=== PATIENT | female | born 1985 ===

== ENCOUNTER 2024-07-24 16:26 | Emergency (ER) | payer SELFPAY ==
[2024-07-24 16:27] VITALS: BP 146/89; PULSE 88; RESP 18; TEMP 36.6; O2SAT 100
--- NOTE | 2024-07-24 16:29 | ED.ABDPAIN ---
HPI - Abdominal Pain General Chief Complaint: Abdominal Pain <Maral Nickerson PA-C - Last Filed: 07/25/24 14:15> Stated Complaint: abdominal pain <Maral Nickerson PA-C - Last Filed: 07/25/24 14:15> Time Seen by Provider: 07/24/24 16:29 <Maral Nickerson PA-C - Last Filed: 07/25/24 14:15> Focused HPI: this is a 38-year-old female that presents to the emergency department for epigastric abdominal pain. Reports radiation into her chest. Reports associated nausea. Denies fevers, vomiting, urinary symptoms. GENERAL: Well-appearing, well-nourished, and in no acute distress. HEAD: Normocephalic, atraumatic. CHEST: Clear to auscultation. ?No respiratory distress. HEART: Regular rate and rhythm.? NEURO: ?Alert and oriented x3. Patient screened in triage and initial orders placed.? ?Additional care and disposition to be based upon?diagnostic testing and treatment. <Maral Nickerson PA-C - Last Filed: 07/25/24 14:15> History of Present Illness HPI narrative: Agree with the HPI above. Patient states she has been having some gaseousness as well as burning epigastric pain in her throat consistent with gastritis and GERD. Patient with urgent care and tried some medications over there including Pepcid and Maalox which did help her symptoms but they recurred. Patient denies any abdominal bloating, lower abdominal pain, vaginal discharge, vaginal bleeding, UTI symptoms. No fever chills. She was otherwise in her normal state of health. Denies chance of . <Guanakito Rosales MD - Last Filed: 07/24/24 23:16> Related Data Allergies/Adverse Reactions: Allergies Allergy/AdvReac Type Severity Reaction Status Date / Time No Known Allergies Allergy Verified 07/24/24 20:47 <Maral Nickerson PA-C - Last Filed: 07/25/24 14:15> Review of Systems Review of Systems: Agree with the HPI above <Guanakito Rosales MD - Last Filed: 07/24/24 23:16> PMFSH Past Medical History Medical History: Medical History Anxiety Asthma Rotator cuff tendinitis Right shoulder pain <Maral Nickerson PA-C - Last Filed: 07/25/24 14:15> Family History Family History: Family History Unknown Heart disease Diabetes mellitus <Maral Nickerson PA-C - Last Filed: 07/25/24 14:15> Social History Social History: Social History Smoking status: Never smoker Alcohol intake: current Substance use type: does not use Living arrangements: with family Occupation/Education: occupation 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 Mucous membranes moist. NECK: Supple. CHEST: [Clear to auscultation. No respiratory distress.] HEART: [Regular rate and rhythm]. No murmur heard. [Normal peripheral pulses.] ABDOMEN: [Soft, nondistended], [nontender], [No rigidity or guarding] EXTREMITIES: Normal range of motion. [No edema.] SKIN: Warm, dry, no rash. NEURO: [No focal deficits]. Alert and oriented [x3.] PSYCH: [Normal mood and affect.] <Guanakito Rosales MD - Last Filed: 07/24/24 23:16> Course Vital Signs Vital signs: Vital Signs Temperature 97.9 F 07/24/24 16:27 Pulse Rate 88 07/24/24 16:27 Respiratory Rate 18 07/24/24 16:27 Blood Pressure 146/89 H 07/24/24 16:27 Pulse Oximetry 100 07/24/24 16:27 Oxygen Delivery Room Air 07/24/24 16:27 Temperature 98.3 F 07/24/24 21:59 Pulse Rate 86 07/24/24 21:59 Respiratory Rate 14 07/24/24 21:59 Blood Pressure 106/84 07/24/24 21:59 Pulse Oximetry 98 07/24/24 21:59 Oxygen Delivery Room Air 07/24/24 16:27 <Maral Nickerson PA-C - Last Filed: 07/25/24 14:15> Vital Signs Temperature 97.9 F 07/24/24 16:27 Pulse Rate 88 07/24/24 16:27 Respiratory Rate 18 07/24/24 16:27 Blood Pressure 146/89 H 07/24/24 16:27 Pulse Oximetry 100 07/24/24 16:27 Oxygen Delivery Room Air 07/24/24 16:27 Temperature 98.3 F 07/24/24 21:59 Pulse Rate 86 07/24/24 21:59 Respiratory Rate 14 07/24/24 21:59 Blood Pressure 106/84 07/24/24 21:59 Pulse Oximetry 98 07/24/24 21:59 Oxygen Delivery Room Air 07/24/24 16:27 <Guanakito Rosales MD - Last Filed: 07/24/24 23:16> MDM - Abdominal Pain MDM Narrative Medical decision making narrative: 38-year-old otherwise healthy female presenting with gastritis type symptoms with burning SP gastric and esophageal pain responsive to Pepcid and Maalox. Denies any abdominal bloating, lower abdominal pain or pelvic pain. No nausea, vomiting. No fever or chills. She is otherwise unremarkable vital signs, no tachycardia, fever or hypoxia. Soft nontender nondistended abdomen. Suspicion presently is for gastritis, GERD, low suspicion for intra-abdominal pathology but we will evaluate with laboratory studies such as CBC, CMP, lipase and urinalysis. No indications for imaging at this time. Patient was given combination treatments including Reglan, Bentyl and Pepcid and will be re-evaluated. Workup shows no leukocytosis or anemia. Negative LFTs. Normal renal function, normal electrolytes. Normal glucose. Negative lipase. Urinalysis without signs of infection. Patient was asymptomatic on re-evaluation and is stable for discharge home at this time. She was given return precautions and general PCP follow-up instructions. <Guanakito Rosales MD - Last Filed: 07/24/24 23:16> Medical Records Attestation: I reviewed the patient's medical records. <Guanakito Rosales MD - Last Filed: 07/24/24 23:16> Lab Data Attestation: I reviewed the patient's lab results. <Guanakito Rosales MD - Last Filed: 07/24/24 23:16> Result diagrams: 07/24/24 17:51 07/24/24 17:51 <Maral Nickerson PA-C - Last Filed: 07/25/24 14:15> Labs: Lab Results 07/24/24 07/24/24 Range/Units 17:48 17:51 WBC 9.5 (4.5-10.0) K/mm3 RBC 5.09 (4.2-5.4) M/mm3 Hgb 14.8 (12.0-15.0) g/dL Hct 43.1 (37.0-47.0) % MCV 84.7 (80-100) fl MCH 29.1 (26-34) pg MCHC 34.3 (32-36) g/dl RDW 13.0 (11.5-14.5) % Plt Count 301 (150-375) k/mm3 MPV 10.5 H (7.4-10.4) fl Immature Gran % (Auto) 0.2 (0-0.5) % Neut % (Auto) 66.3 (45.5-73.1) % Lymph % (Auto) 27.8 (18.3-44.2) % [place] % (Auto) 4.9 (2.6-8.5) % Eos % (Auto) 0.3 (0-4.4) % Baso % (Auto) 0.5 (0.2-1.2) % Lymph # (Auto) 2.63 (0.9-3.2) K/mm3 [place] # (Auto) 0.5 (0.1-0.6) K/mm3 Eos # (Auto) 0.0 (0-0.3) K/mm3 Baso # (Auto) 0.1 (0.0-0.1) K/mm3 Abs Immat Gran (auto) 0.02 (0.00-0.031) K/mm3 Absolute Neuts (auto) 6.3 (1.3-6.7) K/mm3 Absolute Nucleated RBC 0.000 (0.0-0.012) K/mm3 Nucleated RBC % 0.0 (0.0-0.2) % Sodium 140 (137-145) mmol/L Potassium 3.8 (3.4-5.0) mmol/L Chloride 101 (98-107) mmol/L Carbon Dioxide 25 (22-30) mmol/L Anion Gap 14 H (4-12) mmol/L BUN 11 (7-17) mg/dL Creatinine 0.78 (0.7-1.0) mg/dL Estim Creat Clear Calc 81 ml/min Estimated GFR > 60 (59 - ) Glucose 88 (65-110) mg/dL Calcium 9.5 (8.4-10.2) mg/dL Total Bilirubin 1.0 (0.2-1.3) mg/dL AST 23 (14-36) U/L ALT 19 (6-35) U/L Alkaline Phosphatase 88 (38-126) U/L Troponin I < 0.012 (0.000-0.034) ng/mL Total Protein 9.0 H (6.3-8.2) g/dL Albumin 4.9 (3.5-5.1) g/dL Lipase 84 (23-300) U/L Urine Color Yellow (Yellow) Urine Appearance Clear (Clear) Urine pH 6.0 (5.0-9.0) Ur Specific [place] 1.009 (1.001-1.035) Urine Protein Negative (Negative) mg/dL Urine Glucose (UA) Negative (Negative) mg/dL Urine Ketones 2+ H (Negative) mg/dL Ur Blood (Man) Negative (Negative) Urine Nitrate Negative (Negative) Urine Bilirubin Negative (Negative) Urine Urobilinogen 0.2 (<2.0) mg/dL Leukocyte Esterase Rfl Negative (Negative) PIOTR/UL POC Urine HCG, Qual Negative (Negative) <Maral Nickerson PA-C - Last Filed: 07/25/24 14:15> Lab Results 07/24/24 07/24/24 Range/Units 17:48 17:51 WBC 9.5 (4.5-10.0) K/mm3 RBC 5.09 (4.2-5.4) M/mm3 Hgb 14.8 (12.0-15.0) g/dL Hct 43.1 (37.0-47.0) % MCV 84.7 (80-100) fl MCH 29.1 (26-34) pg MCHC 34.3 (32-36) g/dl RDW 13.0 (11.5-14.5) % Plt Count 301 (150-375) k/mm3 MPV 10.5 H (7.4-10.4) fl Immature Gran % (Auto) 0.2 (0-0.5) % Neut % (Auto) 66.3 (45.5-73.1) % Lymph % (Auto) 27.8 (18.3-44.2) % [place] % (Auto) 4.9 (2.6-8.5) % Eos % (Auto) 0.3 (0-4.4) % Baso % (Auto) 0.5 (0.2-1.2) % Lymph # (Auto) 2.63 (0.9-3.2) K/mm3 [place] # (Auto) 0.5 (0.1-0.6) K/mm3 Eos # (Auto) 0.0 (0-0.3) K/mm3 Baso # (Auto) 0.1 (0.0-0.1) K/mm3 Abs Immat Gran (auto) 0.02 (0.00-0.031) K/mm3 Absolute Neuts (auto) 6.3 (1.3-6.7) K/mm3 Absolute Nucleated RBC 0.000 (0.0-0.012) K/mm3 Nucleated RBC % 0.0 (0.0-0.2) % Sodium 140 (137-145) mmol/L Potassium 3.8 (3.4-5.0) mmol/L Chloride 101 (98-107) mmol/L Carbon Dioxide 25 (22-30) mmol/L Anion Gap 14 H (4-12) mmol/L BUN 11 (7-17) mg/dL Creatinine 0.78 (0.7-1.0) mg/dL Estim Creat Clear Calc 81 ml/min Estimated GFR > 60 (59 - ) Glucose 88 (65-110) mg/dL Calcium 9.5 (8.4-10.2) mg/dL Total Bilirubin 1.0 (0.2-1.3) mg/dL AST 23 (14-36) U/L ALT 19 (6-35) U/L Alkaline Phosphatase 88 (38-126) U/L Troponin I < 0.012 (0.000-0.034) ng/mL Total Protein 9.0 H (6.3-8.2) g/dL Albumin 4.9 (3.5-5.1) g/dL Lipase 84 (23-300) U/L Urine Color Yellow (Yellow) Urine Appearance Clear (Clear) Urine pH 6.0 (5.0-9.0) Ur Specific [place] 1.009 (1.001-1.035) Urine Protein Negative (Negative) mg/dL Urine Glucose (UA) Negative (Negative) mg/dL Urine Ketones 2+ H (Negative) mg/dL Ur Blood (Man) Negative (Negative) Urine Nitrate Negative (Negative) Urine Bilirubin Negative (Negative) Urine Urobilinogen 0.2 (<2.0) mg/dL Leukocyte Esterase Rfl Negative (Negative) PIOTR/UL POC Urine HCG, Qual Negative (Negative) <Guanakito Rosales MD - Last Filed: 07/24/24 23:16> Critical Care Time Critical Care Time Critical Care Time: No <Maral Nickerson PA-C - Last Filed: 07/25/24 14:15> Discharge Plan Discharge Clinical Impression: Abdominal pain Qualifiers: Abdominal location: epigastric Qualified Code(s): R10.13 - Epigastric pain Gastritis Qualifiers: Gastritis type: unspecified gastritis Chronicity: acute Gastritis bleeding: without bleeding Qualified Code(s): K29.00 - Acute gastritis without bleeding <SHOSHANA Rae Last Filed: 07/25/24 14:15> Patient Disposition: Home, Self-Care <Maral Nickerson PA-C - Last Filed: 07/25/24 14:15> Condition: Stable <Maral Nickerson PA-C - Last Filed: 07/25/24 14:15> Instructions: Antibiotic Form, Diet for Stomach Ulcers and Gastritis (ED), GERD (Gastroesophageal Reflux Disease) (DC), Abdominal Pain (ED) <SHOSHANA Rae Last Filed: 07/25/24 14:15> Additional Instructions: Your laboratory studies are all very reassuring, no signs of inflammatory markers or infection, no organ dysfunction or elevations in kidney or liver tests. Pancreas normal. You likely have reflux, gastritis or combination of both. Follow-up with regular doctor, will send you home with some different medications to try including dicyclomine and Reglan. Return with any concerns otherwise call your regular doctor for follow-up. <Maral Nickerson PA-C - Last Filed: 07/25/24 14:15> Patient Language: Romansh <Maral Nickerson PA-C - Last Filed: 07/25/24 14:15> Prescriptions: New metoclopramide HCl [Reglan] 5 mg tablet 5 mg PO Q8H PRN (Reason: nausea and vomiting) Qty: 10 0RF dicyclomine 20 mg tablet 20 mg PO TID PRN (Reason: abdominal pain) Qty: 20 0RF alum-mag hydroxide-simeth [Maalox Advanced] 200-200-20 mg/5 mL suspension 15 ml PO QID PRN (Reason: dyspepsia) Qty: 3000 0RF Rx Instructions: administer between meals and at bedtime <Maral Nickerson PA-C - Last Filed: 07/25/24 14:15> Follow-up/Referrals: Bonnie,Jair Morrissey [Primary Care Provider] - <Maral Nickerson PA-C - Last Filed: 07/25/24 14:15> Time of Disposition: 23:16 <Maral Nickerson PA-C - Last Filed: 07/25/24 14:15> 23:16 <Guanakito Rosales MD - Last Filed: 07/24/24 23:16>
[2024-07-24 17:51] LABS: BEDSIDEPREGUCG Negative (Negative)
[2024-07-24 18:04] LABS: Basophils Absolute Auto 0.1 K/mm3 (0.0-0.1); Basophils Percent Auto 0.5 % (0.2-1.2); Eosinophils Percent Auto 0.3 % (0-4.4); Hematocrit 43.1 % (37.0-47.0); Hemoglobin 14.8 g/dL (12.0-15.0); Immature Granulocyte Absolute 0.02 K/mm3 (0.00-0.031); Immature Granulocyte Percent A 0.2 % (0-0.5); Lymphocytes Absolute Auto 2.63 K/mm3 (0.9-3.2); Lymphocytes Percent Auto 27.8 % (18.3-44.2); Mean Corpuscular HGB Conc 34.3 g/dl (32-36); Mean Corpuscular Hemoglobin 29.1 pg (26-34); Mean Corpuscular Volume 84.7 fl (80-100); Mean Platelet Volume 10.5 fl (7.4-10.4); Monocytes Absolute Auto 0.5 K/mm3 (0.1-0.6); Monocytes Percent Auto 4.9 % (2.6-8.5); Neutrophils Absolute Auto 6.3 K/mm3 (1.3-6.7); Neutrophils Percent Auto 66.3 % (45.5-73.1); Platelet Count Result 301 k/mm3 (150-375); Red Blood Count 5.09 M/mm3 (4.2-5.4); White Blood Count 9.5 K/mm3 (4.5-10.0)
[2024-07-24 18:05] LABS: Add Urine Microscopic? NO; Appearance Urine Clear (Clear); Bilirubin Urine Negative (Negative); Blood Urine Negative (Negative); Color Urine Yellow (Yellow); Glucose Urine UA Negative (Negative); Ketones Urine 2+ mg/dL (Negative); Leukocyte Esterase Ur Negative LEU/UL (Negative); Nitrate Urine Negative (Negative); Protein Urine Negative (Negative); Specific Grav Ur 1.009 (1.001-1.035); Urobilinogen Urine 0.2 mg/dL (<2.0)
[2024-07-24 18:11] LABS: Alanine Aminotransferase 19 U/L (6-35); Albumin Level 4.9 g/dL (3.5-5.1); Alkaline Phosphatase 88 U/L (38-126); Anion Gap 14 mmol/L (4-12); Aspartate Amino Transferase 23 U/L (14-36); Blood Urea Nitrogen 11 mg/dL (7-17); Calcium 9.5 mg/dL (8.4-10.2); Carbon Dioxide 25 mmol/L (22-30); Chloride 101 mmol/L (98-107); Estimated CRCL calculation 81 ml/min; Estimated Glomerular Filt Rate > 60; Glucose 88 mg/dL (65-110); Lipase 84 U/L (23-300); Potassium 3.8 mmol/L (3.4-5.0); Sodium 140 mmol/L (137-145)
[2024-07-24 18:23] LABS: Troponin I < 0.012 ng/mL (0.000-0.034)
[2024-07-24 18:48] VITALS: BP 150/86; PULSE 92; RESP 18; TEMP 36.7; O2SAT 100
[2024-07-24 20:46] VITALS: BP 139/87; PULSE 98; RESP 16; TEMP 37; O2SAT 100
[2024-07-24] MEDS: FAMOTIDINE 20 MG/2 ML VIAL IV PUSH (21:31)
[2024-07-24] MEDS: METOCLOPRAMIDE HCL INJ 10 MG/2 ML VIAL 5 MG IV PUSH (21:33)
[2024-07-24] MEDS: DICYCLOMINE HCL INJ 20 MG/2 ML VIAL IM (21:34)
[2024-07-24 21:59] VITALS: BP 106/84; PULSE 86; RESP 14; TEMP 36.8; O2SAT 98
== END 2024-07-24 23:21 | disposition home or self-care (01) ==
PROVIDERS: Physician Assistant; Emergency Provider Student in an Organized Health Care Education/Training Program; PCP Internal Medicine Infectious Disease
DX: K29.00 Acute gastritis without bleeding (principal); R10.13 Epigastric pain; J45.909 Unspecified asthma, uncomplicated
CPT/HCPCS: 36415; 80053; 81003; 81025; 83690; 84484; 85025; 93005; 96372; 96374; 96375; 99284; J0500; J2765